=== PATIENT | male | born 1975 ===

== ENCOUNTER 2025-03-05 09:30 | Inpatient (IN) | payer OTHER ==
[~2025-03-05] VITALS: Ht 177.8 cm; Wt 78.5 kg
[2025-03-05 11:02] LABS: BASO % 0.7 % (0.1-1.2); EOS # 0.12 (0.04-0.54); EOS % 2.8 % (0.7-7.0); LYMPH # 1.33 (1.18-3.74); LYMPH % 31.5 % (19.3-53.1); MEAN PLATELET VOLUME 9.40 fl (9.4-12.4); MONO # 0.30 (0.24-0.82); MONO % 7.1 % (4.7-12.5); NEUT # 2.43 (1.56-6.13); NEUT % 57.7 % (34.0-71.1); RED CELL DISTRIBUTION WIDTH 11.9 % (11.6-14.4)
[2025-03-05 11:06] LABS: URINE APPEARANCE Clear; URINE BILIRRUBIN Negative (NEGATIVE); URINE BLOOD Negative; URINE COLOR Yellow; URINE GLUCOSE Negative (NEGATIVE); URINE KETONE Negative (NEGATIVE); URINE LEUKOCYTE Negative; URINE NITRATE Negative; URINE PROTEIN Negative (NEGATIVE); URINE UROBILINOGEN 0.2 E.U./dl
[2025-03-05 11:08] VITALS: BP 142/94
[2025-03-05 11:09] LABS: URINE BACTERIA 9.5 uL (0.0-1933)
[2025-03-05 11:14] LABS: URINE CAST 0.00 uL (0.0-1.40); URINE EPITHELIAL CELLS 0.0 uL (0.0-38.8); URINE RBC 0.4 uL (0.0-20.8); URINE WBC 1.2 uL (0.0-23.2)
[2025-03-05 11:22] LABS: INR 1.04
[2025-03-05 11:37] LABS: COVID-19 AG NEGATIVE (NEGATIVE)
[2025-03-05 11:44] LABS: ALT/SGPT 24.0 U/L (12-78); AST/SGOT 14.0 U/L (15-37); BILIRUBIN TOTAL 1.22 mg/dL (0.3-1.2); BUN CREA RATIO 18.0 (7.0-25.0); CREATININE SERUM 0.92 mg/dL (0.70-1.30); GFR 88.18; GLOBULINA 2.9 G/DL (2.4-3.5); GLUCOSE FASTING 99.0 mg/dL (65-100); OSMOLALITY SERUM 285.0 MOSM/KG (275-295)
[2025-03-05 11:49] LABS: RH POSITIVE
[2025-03-05 12:01] LABS: CHOL HDL RATIO 2.9 (0-5.0); HDL 59.0 mg/dl (40-60); LDL 103.0 mg/dl (0-130); VLDL 9.0 (0-39)
[2025-03-09] MEDS ORDERED: CEFAZOLIN SODIUM 1,000 MG VIAL ONE (12:22)
[2025-03-09] MEDS ORDERED: TRANEXAMIC ACID 100MG/1ML (1000MG) AMPUL ONE (12:22)
[2025-03-09] MEDS ORDERED: VANCOMYCIN HCL 1,000 MG VIAL ONE (15:02)
[2025-03-09] MEDS ORDERED: POVIDONE-IODINE 118 ML BOTT TOP ONE (17:04)
[2025-03-09] MEDS ORDERED: TRANEXAMIC ACID 100MG/1ML (1000MG) AMPUL IV ONE (19:00)
[2025-03-09] MEDS ORDERED: SODIUM CHLORIDE 0.45 % 1,000 ML IV SCH (20:45)
[2025-03-09] MEDS ORDERED: ONDANSETRON HCL 2 MG/ML VIAL IV PRN (20:45)
[2025-03-09] MEDS ORDERED: MORPHINE SULFATE 4 MG/ML CARTRIDGE IV PRN (20:45)
[2025-03-09] MEDS ORDERED: OxyCODONE HCL 5 MG TABLET (ROXICODONE) PO PRN (20:45)
[2025-03-09 21:12] VITALS: BP 109/62; O2SAT 98
[2025-03-10] MEDS ORDERED: ACETAMINOPHEN 500 MG GEL..CAP PO SCH
[2025-03-10] MEDS ORDERED: CEFAZOLIN SODIUM 1,000 MG VIAL IV SCH (01:00)
[2025-03-10] MEDS ORDERED: GABAPENTIN 300 MG CAPSULE PO SCH (01:00)
[2025-03-10 01:37] VITALS: BP 119/71; O2SAT 100
[2025-03-10 07:02] LABS: BASO % 0.3 % (0.1-1.2); EOS # 0.01 (0.04-0.54); EOS % 0.2 % (0.7-7.0); LYMPH # 1.04 (1.18-3.74); LYMPH % 16.2 % (19.3-53.1); MEAN PLATELET VOLUME 9.60 fl (9.4-12.4); MONO # 0.59 (0.24-0.82); MONO % 9.2 % (4.7-12.5); NEUT # 4.75 (1.56-6.13); NEUT % 73.9 % (34.0-71.1); RED CELL DISTRIBUTION WIDTH 11.5 % (11.6-14.4)
[2025-03-10 08:00] VITALS: BP 122/70; O2SAT 97
[2025-03-10] MEDS ORDERED: ELIQUIS2.5 MG PO (08:37)
[2025-03-10] MEDS ORDERED: DUI500 PO (08:37)
[2025-03-10] MEDS ORDERED: PERCOCET 10-321 EACH PO (08:37)
[2025-03-10] MEDS ORDERED: APIXABAN 2.5 MG TABLET PO SCH (09:00)
[2025-03-10] MEDS ORDERED: SENNOSIDES 1 TAB TABLET PO SCH (09:00)
[2025-03-10 11:39] LABS: COVID-19 AG NEGATIVE (NEGATIVE)
[2025-03-10 17:36] VITALS: BP 122/76; O2SAT 97
[2025-03-11] MEDS ORDERED: IRON FUM,PS/FOLIC ACID/VITC/B3 1 CAP CAPSULE PO SCH (09:00)
== END 2025-03-10 18:07 | DRG 467 ==
LOC: SURH 03-09 09:30 → O/R 03-09 13:08 → SURH 03-09 15:49
PROVIDERS: ADMIT Orthopaedic Surgery; ATTEND Orthopaedic Surgery
PROC: 0SPB0JZ Removal of Synthetic Substitute from Left Hip Joint, Open Approach (ICD-10-PCS; 2025-03-09)
PROC: 0QU70JZ Supplement Left Upper Femur with Synthetic Substitute, Open Approach (ICD-10-PCS; 2025-03-09)
PROC: 0SRB02Z Replacement of Left Hip Joint with Metal on Polyethylene Synthetic Substitute, Open Approach (ICD-10-PCS; principal; 2025-03-09 09:45)
DX: M16.12 Unilateral primary osteoarthritis, left hip (principal); M87.052 Idiopathic aseptic necrosis of left femur; Z96.642 Presence of left artificial hip joint